=== PATIENT | female | born 1990 | race Caucasian/White ===

== ENCOUNTER 2017-01-04 20:33 | Emergency (ER) | payer MEDICAID, OTHER ==
[2017-01-04 22:33] LABS: SPECIFIC GRAVITY 1.025 (1.001-1.030); URINE BILIRUBIN NEGATIVE (NEGATIVE); URINE BLOOD TRACE (NEGATIVE); URINE GLUCOSE (UA) NEGATIVE (NEGATIVE); URINE LEUKOCYTE ESTERASE NEGATIVE (NEGATIVE); URINE NITRITE NEGATIVE (NEGATIVE); URINE PROTEIN NEGATIVE (NEGATIVE); URINE UROBILINOGEN NORMAL (0-1 mg/dl)
[2017-01-04 22:36] LABS: HCG,QUALITATIVE URINE POSITIVE; URINE APPEARANCE CLEAR; URINE COLOR YELLOW
[2017-01-04 22:56] LABS: URINE BACTERIA RARE; URINE EPITHELIAL CELLS 0-2 /hpf; URINE RBC 0-2 /hpf; URINE WBC 0-2 /hpf
--- NOTE | 2017-01-05 08:04 | US ---
OB COMP <14 WKS, OB TRANSVAGINAL HISTORY: Pelvic pain with spotting. The patient is , expected be at 6 weeks 1 day gestational age. COMPARISONS: None. FINDINGS: Transabdominal and transvaginal ultrasonography demonstrates an intrauterine fluid collection. The mean diameter of the fluid collection measures 1.3 cm, equivalent to a gestational age of 5 weeks 3 days. There is a visible yolk sac and pole with the crown to rump length measuring 0.17 cm which is not on the current scale for dating. There is a small adjacent fluid collection next to the gestational sac measuring 7 x 4 x 10 mm in size. cardiac activity is noted with a heart rate of 67 bpm. The maternal right ovary measures 3.3 x 1.9 x 2.8 cm. The left ovary measures 3.1 x 2.1 x 2.9 cm. No adnexal masses or free fluid are seen. IMPRESSION: 1. A single live intrauterine gestation with mean ultrasound gestational age 5 weeks 3 days. The calculated sonographic EDC is 09/03/2017. cardiac activity is observed with a low heart rate of 67 bpm, possibly due to early gestational age. 2. A small focus of perigestational hemorrhage measuring up to 10 mm in size. 3. No adnexal masses or free fluid observed. The findings were called to the emergency room at 0041 hours, 01/05/2017, by [facility] radiology.
== END 2017-01-05 01:17 | disposition home or self-care (01) ==
LOC: ED 20:33
DX: O20.0 Threatened abortion (principal); O99.511 Diseases of the respiratory system complicating pregnancy, first trimester; J45.909 Unspecified asthma, uncomplicated; O99.331 Smoking (tobacco) complicating pregnancy, first trimester; F17.210 Nicotine dependence, cigarettes, uncomplicated; Z3A.01 Less than 8 weeks gestation of pregnancy